=== PATIENT | female | born 1965 | race African-American/Black ===

== ENCOUNTER 2017-06-11 09:47 | Emergency (ER) | payer OTHER ==
[~2017-06-11] VITALS: Ht 162.6 cm; Wt 62.1 kg
[2017-06-11 09:47] VITALS: BP 108/66
--- NOTE | 2017-06-11 10:25 | EKG ---
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
--- NOTE | 2017-06-11 10:40 | PHYS DOC ---
Adult General Chief Complaint Chief Complaint: Palpitations HPI HPI 51-year-old female presenting to the emergency department today with palpitations. Palpitations occurred 3 nights ago and last night. Currently she is asymptomatic. Location generalized. Duration intermittent. No alleviating or exacerbating factors present. Review of systems is negative for fevers chills abdominal pain chest pain shortness of breath. All other review of systems is negative unless otherwise noted in history of present illness. ED course: 51-year-old female presenting to the emergency department with intermittent palpitations in the past, and is currently asymptomatic. Patient's vital signs are unremarkable. EKG unremarkable. Reviewed by myself. Sinus rhythm with a regular rate. ST segments congruent. [place] normal. Intervals within normal limits. Patient discharged home with PCP follow-up. The patient was then discharged home in stable condition to follow up with their primary care physician over the next 2-3 days. They were to return if their symptoms worsened or if they were concerned for any reason. [id number] discharge instructions and return precautions were given. Patient's questions were answered to their satisfaction. Patient is comfortable plan. Review of Systems Review of Systems SEE ABOVE. Physical Exam Physical Exam SEE ABOVE Constitutional: Well developed, well nourished, no acute distress, non-toxic appearance. [] HENT: Normocephalic, atraumatic, bilateral external ears normal, oropharynx moist, no oral exudates, nose normal. [] Eyes: PERRLA, EOMI, conjunctiva normal, no discharge. [] Neck: Normal range of motion, no tenderness, supple, no stridor. [] Cardiovascular:Heart rate regular rhythm, no murmur [] Lungs & Thorax: Bilateral breath sounds clear to auscultation [] Abdomen: Bowel sounds normal, soft, no tenderness, no masses, no pulsatile masses. [] Skin: Warm, dry, no erythema, no rash. [] Back: No tenderness, no CVA tenderness. [] Extremities: No tenderness, no cyanosis, no clubbing, ROM intact, no edema. [] Neurologic: Alert and oriented X 3, normal motor function, normal sensory function, no focal deficits noted. [] Psychologic: Affect normal, judgement normal, mood normal. [] EKG EKG [] Radiology/Procedures Radiology/Procedures [] Course & Med Decision Making Course & Med Decision Making Pertinent Labs and Imaging studies reviewed. (See chart for details) [] Dragon Disclaimer Dragon Disclaimer This electronic medical record was generated, in whole or in part, using a voice recognition dictation system. Departure Departure Impression: Primary Impression: Palpitations Disposition: 01 HOME, SELF-CARE Condition: STABLE Patient Instructions: Palpitations, [id number] Additional Instructions: Thank you for allowing us to participate in your care today. I recommend follow-up with your doctor for possible Holter monitor (heart monitor). Followup with your primary care physician in 3 days if your symptoms do not improve. Call your Primary Doctor tomorrow and inform them of your visit today. If you do not have a primary care provider you can ask for a list of our primary care providers. Return to the emergency department you have any new or concerning findings. This should be evaluated by the primary care physician and any necessary consulting services for continued management within a few days after discharge. Return to emergency room if you have any new or concerning symptoms including but not limited to fever, chills, nausea, vomiting, intractable pain, any new rashes, chest pain, shortness of air, uncontrolled bleeding, difficulty breathing, and/or vision loss. MARIUSZ FAIRBANKS MD Jun 11, 2017 10:40
== END 2017-06-11 11:01 | disposition home or self-care (01) ==
LOC: ER 09:47
DX: R00.2 Palpitations (principal)
CPT/HCPCS: 93005; 99284-25